=== PATIENT | female | born 1950 | race Asian ===

== ENCOUNTER 2022-02-13 07:15 | Inpatient (IN) | payer OTHER ==
[~2022-02-13] VITALS: Ht 152.4 cm; Wt 53.1 kg
--- NOTE | 2022-02-13 07:15 | NUR ---
BIBS SON S/P SYNCOPE EPISODE AT [facility] 30-45 SECONDS, NO TRAUMA, PT BEEN WEAK X1 DAYS AND HAS HAD JOINT PAIN [id number] USUALLY RELIEVED BY TYLENOL BUT HAS HAD NO RELIEF. PT STATED SHE FELT CHEST DISCOMFORT PRIOR TO SYNCOPAL EPISODES BUT DENIES ANY PAIN. PT ATTACHED TO MONITOR. VITALS ARE WITHIN NORMAL LIMITS. WARM BLNKAET PROVIDED FOR COMFORT. AWAITING MD WHITE.
[2022-02-13] MEDS ORDERED: IV NS 0.9% 500 ML BAG IV ONE (08:00)
--- NOTE | 2022-02-13 08:37 | NUR ---
PT TAKEN TO CT VIA [facility]
[2022-02-13] MEDS ORDERED: MULT-24 PO (08:47)
[2022-02-13] MEDS ORDERED: BUDE10.2 IH (08:47)
[2022-02-13] MEDS ORDERED: ASPI-1169 PO (08:47)
[2022-02-13] MEDS ORDERED: CALC1TAB30 PO (08:47)
[2022-02-13] MEDS ORDERED: FURO-145 PO (08:47)
[2022-02-13] MEDS ORDERED: ALBU18HF2 IH (08:47)
[2022-02-13] MEDS ORDERED: SPIR25TA PO (08:47)
--- NOTE | 2022-02-13 09:05 | NUR ---
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 PT PROVIDED WITH URINE CUP.
[2022-02-13 09:11] LABS: BASOPHILS % (AUTO) 0.3 % (0.0-2.0); EOSINOPHILS % (AUTO) 0.3 % (0.0-6.0); HEMATOCRIT 34 % (33-45); HEMOGLOBIN 11.2 g/dL (11.5-14.8); LYMPHOCYTES # (AUTO) 1.1 K/uL (0.8-4.8); LYMPHOCYTES % (AUTO) 9.5 % (20.0-44.0); MEAN CORPUSCULAR HGB CONC 33 g/dl (31.0-36.0); MEAN CORPUSCULAR VOLUME 86 fL (82-100); MONOCYTES # (AUTO) 0.8 K/uL (0.1-1.30); MONOCYTES % (AUTO) 6.9 % (2.0-12.0); NEUTROPHILS # (AUTO) 9.4 K/uL (1.8-8.9); PLATELET COUNT (AUTO) 304 K/uL (150-450); RED BLOOD CELL COUNT(AUTO) 3.93 MIL/uL (4.0-5.2); WHITE BLOOD COUNT (AUTO) 11.3 K/uL (4.3-11.0)
--- NOTE | 2022-02-13 09:16 | NUR ---
COVID TEST COLLECTED AND SENT
[2022-02-13 09:21] LABS: CALCIUM, SERUM 9.1 mg/dL (8.5-10.1); CARBON DIOXIDE 29 mmol/L (21-32); CHLORIDE 102 mmol/L (98-107); CREATININE 0.8 mg/dL (0.6-1.3); GLUCOSE 123 mg/dL (74-106); POTASSIUM 4.2 mmol/L (3.5-5.1); SODIUM SERUM 136 mmol/L (136-145); UREA NITROGEN, BLOOD 15 mg/dL (7-18)
[2022-02-13 09:27] LABS: ALANINE AMINOTRANSFERASE 15 U/L (12-78); ALBUMIN 3.5 g/dL (3.4-5.0); ALKALINE PHOSPHATASE 101 U/L (46-116); ASPARTATE AMINOTRANSFERASE 14 U/L (15-37); BILIRUBIN,DIRECT 0.2 mg/dL (0.0-0.2); BILIRUBIN,TOTAL 0.8 mg/dL (0.2-1.0); TOTAL PROTEIN, SERUM 8.6 g/dL (6.4-8.2)
--- NOTE | 2022-02-13 09:39 | NUR ---
URINE COLLECTED AND SENT
[2022-02-13 09:53] LABS: BILIRUBIN,URINE NEGATIVE (NEGATIVE); COLOR,URINE YELLOW (YELLOW); LEUKOCYTE ESTERASE ,URINE NEGATIVE (NEGATIVE); NITRITE, URINE NEGATIVE (NEGATIVE); PH,URINE 6.5 (5.0-8.0); PROTEIN,URINE NEGATIVE (NEGATIVE); UGLUCOSE NEGATIVE (NEGATIVE); UROBILINOGEN,URINE 0.2 EU/dL (0.2)
--- NOTE | 2022-02-13 10:26 | NUR ---
MIDLINE NURSE AT BEDSIDE
[2022-02-13 10:29] LABS: RBC,URINE 0-2 /HPF (0-2); WBC,URINE 0-2 /HPF (0-3)
[2022-02-13 10:30] LABS: BACTERIA,URINE Few /HPF (None Seen); SQUAMOUS EPITHELIAL CELL,UR Moderate /HPF (None Seen)
--- NOTE | 2022-02-13 11:12 | NUR ---
DR WATSON AT BEDSIDE
[2022-02-13] MEDS ORDERED: ALBUTEROL FS 2.5 MG/3 ML VIAL.NEB NEB PRN (11:30)
[2022-02-13] MEDS ORDERED: MAG HYDROX/AL HYDROX/SIMETH 30 ML UDC PO PRN (11:30)
[2022-02-13] MEDS ORDERED: IV NS 0.9% 1,000 ML IV PRN (11:30)
[2022-02-13] MEDS ORDERED: Z GUARD REMEDY 4 OZ OINT TP PRN (11:30)
[2022-02-13] MEDS ORDERED: ONDANSETRON HCL/PF 4 MG/2 ML VIAL IVP PRN (11:30)
[2022-02-13] MEDS ORDERED: ACETAMINOPHEN 325 MG TABLET PO PRN (11:30)
[2022-02-13] MEDS ORDERED: MAGNESIUM HYDROXIDE 30 ML UDC PO PRN (11:30)
--- NOTE | 2022-02-13 11:37 | NUR ---
ULTRASOUND AT BEDSIDE
--- NOTE | 2022-02-13 13:31 | NUR ---
ROOM 310-2
[2022-02-13] MEDS ORDERED: ALBUTEROL FS 2.5 MG/3 ML VIAL.NEB ONE (13:35)
[2022-02-13] MEDS: ALBUTEROL FS 2.5 MG/3 ML VIAL.NEB NEB SCH ×2 (13:37→20:16)
--- NOTE | 2022-02-13 13:40 | NUR ---
REPORT GIVEN TO NURSE RONNIE FOR EMELINA
--- NOTE | 2022-02-13 14:15 | NUR ---
PATIENT ADMITTED FROM ER, ADMIT DX IS SYNCOPE REPORTED BY REBECCA/RN. PATIENT DENIES ANY DISTRESS, SKIN IS WARM TO TOUCH, RESPIRATORY EVEN AND UNLABORED. CALL LIGHT WITHIN REACH, WILL CONTINUE TO MONITOR.
--- NOTE | 2022-02-13 14:17 | NUR ---
PT TRANSPORTED TO 310 WITH ACLS PROTOCOLS IN PLACE, ABLE TO AMBULATE TO HER BED WITH ASSISTANCE.
[2022-02-13 16:00] VITALS: BP 131/62
--- NOTE | 2022-02-13 18:00 | NUR ---
PATIENT SCHEDULED NEBULIZER AT 1700, CALLED RT TO REMINDER X2.
--- NOTE | 2022-02-13 18:52 | NUR ---
RN CLOSING PATIENT IN BED, RESTING COMFORTABLY. FAMILY MEMBER AT BED SIDE. IN NO ACUTE DISTRESS OBSERVED. SKIN IS WARM TO TOUCH KEEP CLEAN/DRY. PATIENT DENIES CHEST DISCOMFORT, N/V. RESPIRATORY EVEN AND UNLABORED ON ROOM AIR. KEPT ELEVATED HOB FOR ASPIRATION PRECAUTION AND ENSURE AIRWAY. ALSO LOWEST POSITION OF THE BED FOR SAFETY. BED ALARM IS ON AT ALL THE TIME. ALL SAFETY PRECAUTION APPLIED. WILL ENDORSE TO BULL GANG SUPERVISOR.
--- NOTE | 2022-02-13 19:36 | NUR ---
PRODUCTION MATERIAL HANDLER OPENING NOTES RECEIVED PATIENT RESTING IN BED COMFORTABLY, A/OX4, ABLE TO MAKE NEEDS KNOWN; PATIENT FAMILY AT BEDSIDE; BREATHING EVEN AND UNLABORED; NO SOB NOTED, NO DISTRESS NOTED; TOLERATING ROOM AIR WELL; PATIENT DENIES CHEST PAIN AT THIS TIME; TELE MONITOR READS SINUS RHYTHM 70S BPM; SAFETY PRECAUTIONS IMPLEMENTED; BED LOCKED IN LOW POSITION; SIDE RAILSX2; CALL LIGHT WITHIN REACH; WILL CONT PLAN OF CARE Addendum: 02/13/22 at 1936 by GERONIMO BARRY RN PATIENT NOTED TO HAVE QUE MIDLINE #18, TOLERATING IVF WELL; NO S/S OF REDNESS OR INFILTRATION NOTED;
[2022-02-13 20:00] VITALS: BP 121/90
--- NOTE | 2022-02-13 20:13 | NUR ---
RT NOTE HHN TX GIVEN. DAY SHIFT NOT AWARE OF PULMICORT TX SO IT WAS GIVEN LATE. RN AWARE.
[2022-02-13] MEDS: BUDESONIDE RESPULE INH 0.5 MG/2 ML AMPUL.NEB NEB SCH (20:17)
[2022-02-14] VITALS: BP 137/64
[2022-02-14] MEDS: ALBUTEROL FS 2.5 MG/3 ML VIAL.NEB NEB SCH ×3 (02:24→13:53)
--- NOTE | 2022-02-14 06:52 | NUR ---
RECONCILIATION ANALYST CLOSING NOTES PATIENT RESTING IN BED COMFORTABLY, A/OX4, ABLE TO MAKE NEEDS KNOWN; PATIENT FAMILY AT BEDSIDE; BREATHING EVEN AND UNLABORED; NO SOB NOTED, NO DISTRESS NOTED; TOLERATING ROOM AIR WELL; PATIENT DENIES CHEST PAIN AT THIS TIME; SPOKE WITH PATIENT'S DAUGHTER FOR UPDATES 2X DURING SHIFT; DAUGHTER REQUESTING TO COME EARLIER THAN 10AM TO VISIT IN ORDER TO SPEAK TO DOCTOR IF POSSIBLE, CHARGE NURSE AWARE; WILL INFORM DAY SHIFT; TELE MONITOR READS SINUS RHYTHM 70S BPM; ALL NEEDS RENDERED; SAFETY PRECAUTIONS IMPLEMENTED; BED LOCKED IN LOW POSITION; SIDE RAILSX2; CALL LIGHT WITHIN REACH; WILL ENDORSE EMELINA TO ONCOMING SHIFT
[2022-02-14 07:20] LABS: BASOPHILS % (AUTO) 0.5 % (0.0-2.0); EOSINOPHILS % (AUTO) 1.5 % (0.0-6.0); HEMATOCRIT 35 % (33-45); HEMOGLOBIN 11.7 g/dL (11.5-14.8); LYMPHOCYTES # (AUTO) 1.1 K/uL (0.8-4.8); LYMPHOCYTES % (AUTO) 13.6 % (20.0-44.0); MEAN CORPUSCULAR HGB CONC 33 g/dl (31.0-36.0); MEAN CORPUSCULAR VOLUME 85 fL (82-100); MONOCYTES # (AUTO) 0.6 K/uL (0.1-1.30); MONOCYTES % (AUTO) 8.1 % (2.0-12.0); NEUTROPHILS % (AUTO) 76.3 % (43.0-81.0); PLATELET COUNT (AUTO) 311 K/uL (150-450); RED BLOOD CELL COUNT(AUTO) 4.15 MIL/uL (4.0-5.2); WHITE BLOOD COUNT (AUTO) 7.9 K/uL (4.3-11.0)
[2022-02-14 07:50] LABS: CREATININE 0.6 mg/dL (0.6-1.3); MAGNESIUM 2.1 mg/dL (1.8-2.4); PHOSPHORUS 3.4 mg/dL (2.5-4.9); POTASSIUM 3.8 mmol/L (3.5-5.1)
--- NOTE | 2022-02-14 08:01 | NUR ---
REVERBERATORY FURNACE OPERATOR OPENING NOTE Patient in bed, awake. A/O x 4, able to make needs known. On room air, breathing evenly and unlabored. No SOB or s/s of distress noted. IV access on QUE midline infusing NS at 75 ml/hr. On tele monitoring showing SR, HR on the 80's. Safety precautions in place: bed in low, locked position; siderails up x 2; call light within reach. Will continue to monitor.
[2022-02-14 08:35] VITALS: BP 131/66
[2022-02-14] MEDS ORDERED: ASPIRIN 81 MG TAB.CHEW PO SCH (09:00)
[2022-02-14] MEDS: BUDESONIDE RESPULE INH 0.5 MG/2 ML AMPUL.NEB NEB SCH (10:12)
[2022-02-14 12:25] VITALS: BP 123/65
--- NOTE | 2022-02-14 13:20 | NUR ---
DISCHARGE NOTE Received order for discharge. Patient is A/o x 4, able to make needs known. Stable on room air, breathing evenly and unlabored. No SOB or s/s of distress noted. Patient denies any pain or discomfort at this time. Discharge instructions given to patient and daughter, both verbalized understanding. All belongings accounted for. Belonging sheet signed. IV access removed, catheter tip intact. Pressure dressing applied, no signs of bleeding noted. ID band removed. Exitcare folder given to daughter. Patient left in stable condition with family via private car.
--- NOTE | 2022-02-14 14:02 | NUR ---
TREATMENT NOT GIVEN DUE TO PATIENT BEEN DISCHARGED
[2022-02-15 14:06] LABS: *SPE A/G RATIO 0.7 (0.7-1.7); *SPE ALPHA-1-GLOBULIN 0.4 g/dL (0.0-0.4); *SPE ALPHA-2-GLOBULIN 0.9 g/dL (0.4-1.0); *SPE BETA GLOBULIN 1.3 g/dL (0.7-1.3); *SPE M-SPIKE Not Observed g/dL (Not Observed)
== END 2022-02-14 13:10 | disposition home or self-care (01) | DRG 641 ==
LOC: ER 07:15 → TRANSITION 11:13 → TELE 13:32
PROVIDERS: ADMIT Internal Medicine; ATTEND Internal Medicine
PROC: 05HC33Z Insertion of Infusion Device into Left Basilic Vein, Percutaneous Approach (ICD-10-PCS; principal; 2022-02-13)
DX: E86.0 Dehydration (principal); I50.32 Chronic diastolic (congestive) heart failure; J45.909 Unspecified asthma, uncomplicated; D64.9 Anemia, unspecified; Z20.822 Contact with and (suspected) exposure to COVID-19; I35.0 Nonrheumatic aortic (valve) stenosis; Z86.16 Personal history of COVID-19; Z79.82 Long term (current) use of aspirin; Z79.51 Long term (current) use of inhaled steroids; Z79.899 Other long term (current) drug therapy
CPT/HCPCS: 36415; 70450-TC; 71045-TC; 80048-TC; 80076-TC; 81001; 82962-TC; 83735-TC; 83880; 84100-TC; 84155; 84165; 84484-TC; 85025-TC; 85378-TC; 85730-TC; 87081-TC; 93307-TC; 93970-TC; 94799-TC; C9803; G0378; J7030; J7040